=== PATIENT | female | born 1955 | race Caucasian/White ===

== ENCOUNTER 2024-12-19 11:19 | Emergency (ER) | payer OTHER, SELFPAY ==
--- NOTE | ~2024-12-19 | MR_ITS ---
CLINICAL HISTORY: New onset seizure disorder MR BRAIN WITH AND WITHOUT GADOLINIUM Comparison: None provided Findings: No restricted diffusion. No intra-axial mass or hemorrhage. Numerous cortical and subcortical tiny foci of T2 FLAIR signal alteration. Multiple discrete and coalescent foci of T2 FLAIR signal alteration in the periventricular white matter. No mesial temporal signal alteration. No midline shift. No hydrocephalus. Vascular flow voids are intact. Visualized orbits: No acute abnormalities. No sinus fluid. Nonspecific bilateral ethmoid sinus disease. Rightward nasal septal deviation with a large left middle danni bullosa. Signal alteration in the right mastoid air cells suggesting nonspecific partial opacification. No focal bone lesion. IMPRESSION: 1. No acute infarct, hemorrhage or intracranial mass lesion. 2. Mild burden of periventricular and subcortical white matter signal alteration. This is a nonspecific finding that can be seen in the setting of age advanced microangiopathy, remote trauma, prior infectious/inflammatory process (such as demyelination) or can be seen with increased frequency in patients with a history of migraine headaches. This document has been electronically signed by: Ricarda Rodriguez DO on 12/19/2024 18:15:38
--- NOTE | 2024-12-19 11:32 | ECG_ITS ---
Test Reason : NURO CHANGES Blood Pressure : */* mmHG Vent. Rate : 64 BPM Atrial Rate : 64 BPM P-R Int : 198 ms QRS Dur : 88 ms QT Int : 412 ms P-R-T Axes : 80 70 60 degrees QTcB Int : 425 ms Normal sinus rhythm Normal ECG No previous ECGs available Referred By: Florinda Sarmiento Electronically Signed By: RASHI HE
[2024-12-19 11:35] LABS: MANUAL DIFF FLAG NO
[2024-12-19 11:48] VITALS: BP 128/75; PULSE 70; RESP 16; TEMP 37; O2SAT 99; BMI 27.5
[2024-12-19 11:53] LABS: Hematocrit 36.2 % (37.0-47.0); Hemoglobin 12.7 g/dl (12.0-16.0); Imm Gran Abs Auto 0.01 X10*3/uL (0.00-0.03); Imm Gran Pct Auto 0.2 % (0.0-0.4); Lymphocytes Absolute Auto 1.3 X10*3/uL (1.2-4.9); Mean Corpuscular HGB Conc 35.1 g/dl (31.0-35.0); Mean Corpuscular Hemoglobin 32.0 pg (27.0-33.0); Mean Corpuscular Volume 91.2 fL (80.0-98.0); NRBC Abs Auto 0.000 X10*3/uL (0.0-0.012); NRBC Pct Auto 0.0 /100WBC (0.0-0.2); Platelet Count 275 X10*3/uL (160-400); Red Blood Count 3.97 X10*6/uL (4.20-5.50); White Blood Count 4.7 X10*3/uL (4.8-10.8)
--- NOTE | 2024-12-19 11:57 | ED_ITS ---
HPI - Neuro Symptoms/Deficit General Chief Complaint: Neuro Symptoms/Deficit Stated Complaint: Seizure Time Seen by Provider: 12/19/24 11:34 History of Present Illness ED Provider: Dr. Sarmiento HPI Narrative: 68 y/o F patient; PMH trigeminal neuralgia, migraine with aura; presents from out-patient neurologist office with report of witnessed first time seizure episode. Patient was reportedly with her who was receiving unfortunate news. She was then noted to become pale, sweaty, had black spots in her vision, and started to tremble. Report she was drooling at this time. Episode was witnessed by a neurologist who reported concern for partial focal seizure activity. The patient denies any prior episodes of seizure. She is now reporting a left sided headache with mild nausea. She otherwise denies: fever or chills, SOB, cough/congestion, chest pain, abdominal pain, vomiting. Related Data Allergies Allergy/AdvReac Type Severity Reaction Status Date / Time amoxicillin Allergy Rash Verified 12/19/24 11:53 shellfish derived (shellfish) Allergy Hives Verified 12/19/24 11:53 acetaminophen (From Vicodin) AdvReac Fainting Verified 12/19/24 11:53 carbamazepine AdvReac Stomach Verified 12/19/24 11:53 Upset hydrocodone (From Vicodin) AdvReac Fainting Verified 12/19/24 11:53 Review of Systems 2 Review of Systems: Yes all other systems are reviewed and are negative Neurologic: Denies Abnormal speech present and Denies Sensory deficit (Neuro) PMFSH Past Medical History Attestation statement: The following information was validated with the patient. Source: unable to obtain Social History Social History Advance Directives: No Advance Directives Information Provided: Yes Physical Exam 2 Vital Signs: Vital Signs: Last Vital Signs Temp 98.6 F 12/19/24 11:48 Pulse 72 12/19/24 18:12 Resp 12 12/19/24 18:12 BP 153/69 H 12/19/24 18:12 Pulse Ox 100 12/19/24 18:12 O2 Del Method Room Air 12/19/24 18:12 BMI result Body Mass Index 27.5 Patient is afebrile and hemodynamically stable. Const: General: cooperative and no acute distress O rientation/consciousness: patient oriented x3 HEENT: Other: No trauma to tongue Head: Yes normal to inspection and Yes atraumatic Eyes: General: appearance normal, both eyes and all related structures C onjunctivae: conjunctivae normal Pupils: Equal, round and reactive pupils present EOM: EOMs intact bilaterally Neck: Neck: Yes normal visual inspection, Yes full ROM, Yes supple and No tender Chest: Chest palpation & inspection: normal inspection of the chest and normal palpation of entire chest wall Resp: Effort & Inspection: normal respiratory effort, able to speak in complete sentences and no cough Auscultation: clear to auscultation bilaterally Cardio: Rate: regular rate Rhythm: regular rhythm Peripheral pulses: P eripheral pulses 2+ throughout GI: Inspection: Yes normal to inspection, No Abdominal wall edema and No distended Palpation (GI): Soft to palpation, not firm, nontender, no guarding and not rigid Auscultation: normal bowel sounds Back/Spine/Pelvis: Back: No back tenderness Neuro: General: patient oriented x3 and gait normal Cranial nerves: Yes Equal, round and reactive pupils present Cognition (Neuro): normal cognition Speech: No Abnormal speech present Motor exam (neuro): 5/5 motor strength present throughout Sensory Exam: No Sensory deficit (Neuro) Course Course Course Narrative: Patient is afebrile and hemodynamically stable. Given concern for first episode seizure - ordered for CT Head, EKG, and laboratory studies. EKG independently interpreted by myself as NSR 64BPM with normal intervals. No prior for comparison. Provided 1L IVF. Labs reviewed. No leukocytosis. No significant anemia. Cr 1.09. Electrolytes unremarkable. Troponin undetectable. Ethanol negative. Prior to CT scan patient seen by Dr. Ragsdale. Requested EEG and MRI W and WO Contrast, cancel CT scan. Medications Administered Discontinued Medications Generic Name Dose Route Start Last Admin Trade Name Freq PRN Reason Stop Dose Admin Gadobutrol 7.5 ml 12/19/24 17:30 12/19/24 17:30 Gadobutrol 7.5 Ml Vial IVPUSH 12/19/24 17:31 7.5 ml ONCE ONE Administration Sodium Chloride 1,000 mls @ 999 mls/hr 12/19/24 11:45 12/19/24 12:35 Ns IV 12/19/24 12:45 Infused .Q1H1M FAN Infusion Medical Decision Making Medical Decision Making MDM Narrative: Patient's EEG is negative, MRI is negative. I give patient her MRI report. Patient will plan to follow up with neurologist Dr. Ragsdale. patient appears to be well and stable at this time. Lab Data 12/19/24 11:30 12/19/24 11:30 Labs: Lab Results 12/19/24 Range/Units 11:30 WBC 4.7 L (4.8-10.8) X10*3/uL RBC 3.97 L (4.20-5.50) X10*6/uL Hgb 12.7 (12.0-16.0) g/dl Hct 36.2 L (37.0-47.0) % MCV 91.2 (80.0-98.0) fL MCH 32.0 (27.0-33.0) pg MCHC 35.1 H (31.0-35.0) g/dl RDW 12.1 (11.0-16.0) % Plt Count 275 (160-400) X10*3/uL MPV 10.1 (9.4-12.3) fL Immature Gran % (Auto) 0.2 (0.0-0.4) % Neut % (Auto) 58.0 (45-73) % Lymph % (Auto) 26.9 (20-40) % Hancock % (Auto) 12.6 H (2-11) % Eos % (Auto) 1.7 (0-4) % Baso % (Auto) 0.6 (0-2) % Lymph # (Auto) 1.3 (1.2-4.9) X10*3/uL Hancock # (Auto) 0.6 (0.1-1.2) X10*3/uL Eos # (Auto) 0.1 (0.0-0.4) X10*3/uL Baso # (Auto) 0.0 (0.0-0.2) X10*3/uL Abs Immat Gran (auto) 0.01 (0.00-0.03) X10*3/uL Absolute Neuts (auto) 2.7 (2.0-8.3) x10*3/uL Absolute Nucleated RBC 0.000 (0.0-0.012) X10*3/uL Nucleated RBC % (auto) 0.0 (0.0-0.2) /100WBC Hold Blue Top SEE NOTE Sodium 132 L (135-145) mmol/L Potassium 4.2 (3.3-5.1) mmol/L Chloride 101 (96-108) mmol/L Carbon Dioxide 24 (22-29) mmol/L Anion Gap 11 L (12-20) BUN 13 (9-16) mg/dL Creatinine 1.09 (0.5-1.4) mg/dL Estim Creat Clear Calc 53.2 Estimated GFR 50 Random Glucose 123 H (60-115) mg/dL Calcium 9.2 (8.4-10.2) mg/dL Magnesium 2.1 (1.6-2.6) mg/dL Total Bilirubin 0.3 (0.0-1.0) mg/dL AST 24 (5-31) U/L ALT 28 (0-31) U/L Alkaline Phosphatase 54 (39-117) U/L Troponin I High Sens < 2.7 (<3.5-17.0) ng/L Total Protein 7.7 (6.5-8.0) g/dL Albumin 4.6 (3.5-5.0) g/dL Lipase 32 (8-78) U/L Ethyl Alcohol < 10 mg/dL Discharge Plan Discharge Clinical Impression: Seizure Patient Disposition: Home, Self-Care Instructions: New-Onset Seizure in Adults (ED) Referrals: Purvi Ragsdale MD [Physician, Neurology] Print Language: French
[2024-12-19 12:03] LABS: Alanine Aminotransferase 28 U/L (0-31); Albumin Level 4.6 g/dL (3.5-5.0); Alkaline Phosphatase 54 U/L (39-117); Anion Gap 11 (12-20); Aspartate Amino Transferase 24 U/L (5-31); Blood Urea Nitrogen 13 mg/dL (9-16); Calcium 9.2 mg/dL (8.4-10.2); Carbon Dioxide 24 mmol/L (22-29); Chloride 101 mmol/L (96-108); Creatinine Clr Calc Pharmacy 53.2; Estimated Glomerular Filt Rate 50; Lipase 32 U/L (8-78); Magnesium 2.1 mg/dL (1.6-2.6); Potassium 4.2 mmol/L (3.3-5.1); Sodium 132 mmol/L (135-145); Total Protein 7.7 g/dL (6.5-8.0); Troponin-I High Sensitivity < 2.7 ng/L (<3.5-17.0)
--- NOTE | 2024-12-19 12:07 | PC.NURSE ---
System was down at 11:35AM. Normal saline infusing as ordered, initiated at 11:35AM, back timed in EMAR. Patient & in room. Awaiting ED provider evaluation. Patient is alert/oriented at this time. 20g IV access to right AC placed by Alia Garcia RN.
--- NOTE | 2024-12-19 12:13 | EEG_ITS ---
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
--- NOTE | 2024-12-19 12:20 | PC.NURSE ---
Dr. Ragsdale (neurology) to bedside. Dr. Ragsdale also witnessed the seizure that occurred in office. Plan for EEG & MRI. Patient aware & agreeable to plan. Care ongoing by this RN.
--- NOTE | 2024-12-19 13:26 | P.CNNE_ITS ---
History of Present Illness Data of Consult Service Date: 12/19/24 Primary Care Provider: Geraldine Packer MD [facility] Reason for consult: Seizure 68 years old woman who came to my office today for consultation about her who was with her. While we were discussing his situation, she suddenly became unresponsive and had an episode. Later she reported that it started with a feeling of dizziness, nausea, and then something happening to her vision and she seeing stars and then she did not know what happened. I witnessed the whole event and noticed that files dropped from her hands she became lethargic, was staring in space, was unresponsive, and drooling. This episode lasted for 30-40 seconds and then she said that she was okay but she was still spacey and confused for many minutes. She remained seated during this time. Later, upon questioning, she stated that she had an episode 5 years ago which was confirmed by her . said that he heard a noise in the house and when he approached her, her whole body was shaking in her head head hit the ground. Emphasis was on concussions and she had a brain scan or a CAT scan done. After that she also started having left-sided facial numbness and sometime sharp pain and was diagnosed with trigeminal neuralgia but never had an MRI of brain. She reported having febrile seizure in childhood and taking phenobarbital that was stopped after couple of years of use. She was recently diagnosed with a breast lesion that was biopsied either yesterday or day before. Review of Systems 2 Review of Systems: As per [facility] Social History Social History Advance Directives: No Advance Directives Information Provided: Yes Meds Allergies Allergy/AdvReac Type Severity Reaction Status Date / Time amoxicillin Allergy Rash Verified 12/19/24 11:53 shellfish derived (shellfish) Allergy Hives Verified 12/19/24 11:53 acetaminophen (From Vicodin) AdvReac Fainting Verified 12/19/24 11:53 carbamazepine AdvReac Stomach Verified 12/19/24 11:53 Upset hydrocodone (From Vicodin) AdvReac Fainting Verified 12/19/24 11:53 Physical Exam 2 Vital Signs: Vital Signs: Last Vital Signs Temp 98.6 F 12/19/24 11:48 Pulse 70 12/19/24 11:48 Resp 16 12/19/24 11:48 BP 128/75 12/19/24 11:48 Pulse Ox 99 12/19/24 11:48 O2 Del Method Room Air 12/19/24 11:48 BMI result Body Mass Index 27.5 Neuro: Other: Mental Status: Alert and oriented to person, place, and time. Normal attention. Normal spontaneous speech, fluency, and comprehension. No obvious issues with mood and memory. Affect is appropriate. Cranial Nerves: CN II: Visual vizcarra full to confrontation, visual acuity intact. CN III, IV, : Pupils equal, round, reactive to light and accommodation. Extraocular movements are normal. CN V: Facial sensation is normal. CN VII: Facial movements symmetrical. CN VIII: Hearing intact to bedside conversation is normal. CN IX, X: Palate elevates symmetrically. CN XI: Shoulder shrug and head turn symmetrical. CN XII: Tongue midline without atrophy or fasciculations. Motor: Bulk and tone normal in all extremities. No significant muscle weakness in arms and legs. No drift. Reflexes: Deep tendon reflexes 2+ and symmetric. Plantar response down-going bilaterally. Coordination: [id number]-[id number] and gfko-[id number] testing normal. No dysmetria. Gait and Station: No obvious gait abnormality. No ataxia or instability. Extrapyramidal: Full facial expressions and blinking. No rigidity. Movements are appropriate with no tremor or abnormality. Speech: Normal; no dysarthria or tremor. Results Labs 12/19/24 11:30 12/19/24 11:30 Labs: Short CBC 12/19/24 Range/Units 11:30 WBC 4.7 L (4.8-10.8) X10*3/uL Hgb 12.7 (12.0-16.0) g/dl Hct 36.2 L (37.0-47.0) % Plt Count 275 (160-400) X10*3/uL BMP 12/19/24 11:30 Sodium 132 L Potassium 4.2 Chloride 101 Carbon Dioxide 24 BUN 13 Creatinine 1.09 Calcium 9.2 Liver Function 12/19/24 Range/Units 11:30 Total Bilirubin 0.3 (0.0-1.0) mg/dL AST 24 (5-31) U/L ALT 28 (0-31) U/L Alkaline Phosphatase 54 (39-117) U/L Albumin 4.6 (3.5-5.0) g/dL Assessment and Plan (1) Complex partial seizure: Status: Acute 68 years old woman with childhood history of febrile seizures, 1 generalized convulsion 5 years ago, diagnosis of left-sided trigeminal neuralgia, recent diagnosis of breast lesion that was biopsied recently, was sitting in my office when she had set of symptoms suggestive of complex partial seizure. Her examination later was nonfocal. My recommendation is to obtain MRI of brain with and without contrast in an EEG. She was educated about the clinical diagnosis. She should take appropriate precautions to avoid any accidents including following [facility] driving restrictions are not drive at this time. I would make dizzy and about medications after looking at her EEG and MRI. Procedures Date of Service Date of Service: 12/19/24
[2024-12-19 15:38] VITALS: BP 161/71; PULSE 79; RESP 18; O2SAT 99
[2024-12-19 18:12] VITALS: BP 153/69; PULSE 72; RESP 12; O2SAT 100
--- NOTE | 2024-12-19 18:36 | PC.NURSE ---
Patient returned from MRI. Drinking amanda jamaal with ice. at bedside. Denies complaints at this time. Awaiting MRI results. EEG was done by neurology department earlier today.
[2024-12-19 19:12] VITALS: BP 153/69; PULSE 72; RESP 12; TEMP 36.8; O2SAT 100
== END 2024-12-19 19:12 | disposition home or self-care (01) ==
PROVIDERS: Emergency Provider Emergency Medicine; PCP Student in an Organized Health Care Education/Training Program
DX: R56.9 Unspecified convulsions (principal); Z86.69 Personal history of other diseases of the nervous system and sense organs; Z79.899 Other long term (current) drug therapy
CPT/HCPCS: 36415; 70553; 80053; 80307; 83690; 83735; 84484; 85025; 93005; 95816; 96360; 99284; 99285; A9585

== ENCOUNTER → 2024-12-19 11:32 | Outpatient (BNV) | payer OTHER, SELFPAY | PROVIDERS: Emergency Provider Emergency Medicine; PCP Student in an Organized Health Care Education/Training Program; Visit Provider Internal Medicine | DX: R29.818 Other symptoms and signs involving the nervous system (principal) | CPT/HCPCS: 93010 ==

== ENCOUNTER → 2024-12-19 12:13 | Outpatient (BNV) | payer OTHER, SELFPAY | PROVIDERS: Emergency Provider Emergency Medicine; PCP Student in an Organized Health Care Education/Training Program; Visit Provider Radiology Diagnostic Radiology | DX: R56.9 Unspecified convulsions (principal) | CPT/HCPCS: 70553 ==

== ENCOUNTER → 2024-12-19 12:18 | Outpatient (BNV) | payer OTHER, SELFPAY | PROVIDERS: Emergency Provider Emergency Medicine; PCP Student in an Organized Health Care Education/Training Program; Visit Provider Psychiatry & Neurology Neurology | DX: G40.209 Localization-related (focal) (partial) symptomatic epilepsy and epileptic syndromes with complex partial seizures, not intractable, without status epilepticus (principal) | CPT/HCPCS: 95816; 99285 ==

== ENCOUNTER 2025-01-20 12:46 | Outpatient (AMB) | payer OTHER, SELFPAY ==
--- NOTE | 2025-01-20 12:57 | MHC.OFFVIS ---
Intake Visit Reasons: Sz in office, follow up after ER. MRI done in ED Allergies amoxicillin Allergy (Verified 12/19/24 11:53) Rash shellfish derived (shellfish) Allergy (Verified 12/19/24 11:53) Hives acetaminophen (From Vicodin) Adverse Reaction (Verified 12/19/24 11:53) Fainting carbamazepine Adverse Reaction (Verified 12/19/24 11:53) Stomach Upset hydrocodone (From Vicodin) Adverse Reaction (Verified 12/19/24 11:53) Fainting HPI Comments Details: 69 years old woman with complex partial seizure disorder. (Initial detail: She came to my office today for consultation about her who was with her. While we were discussing his situation, she suddenly became unresponsive and had an episode. Later she reported that it started with a feeling of dizziness, nausea, and then something happening to her vision and she seeing stars and then she did not know what happened. I witnessed the whole event and noticed that files dropped from her hands she became lethargic, was staring in space, was unresponsive, and drooling. This episode lasted for 30-40 seconds and then she said that she was okay but she was still spacey and confused for many minutes. She remained seated during this time. Later, upon questioning, she stated that she had an episode 5 years ago which was confirmed by her . said that he heard a noise in the house and when he approached her, her whole body was shaking in her head head hit the ground. Emphasis was on concussions and she had a brain scan or a CAT scan done. After that she also started having left-sided facial numbness and sometime sharp pain and was diagnosed with trigeminal neuralgia but never had an MRI of brain. She reported having febrile seizure in childhood and taking phenobarbital that was stopped after couple of years of use.) Her breast biopsy was negative and she was happy. She was trying blood pressure medicines and had cough with lisinopril and now was trying losartan. No further seizure-like episode have occurred. [facility] Medical History (Updated 01/20/25 @ 13:10 by Purvi Ragsdale MD) Complex partial seizure Review of Systems Const Details: No further seizure-like episodes. Physical Exam Neuro Other: Mental Status: Alert and oriented to person, place, and time. Normal attention. Normal spontaneous speech, fluency, and comprehension. No obvious issues with mood and memory. Affect is appropriate. Cranial Nerves: CN II: Visual vizcarra full to confrontation, visual acuity intact. CN III, IV, : Pupils equal, round, reactive to light and accommodation. Extraocular movements are normal. CN V: Facial sensation is normal. CN VII: Facial movements symmetrical. CN VIII: Hearing intact to bedside conversation is normal. CN IX, X: Palate elevates symmetrically. CN XI: Shoulder shrug and head turn symmetrical. CN XII: Tongue midline without atrophy or fasciculations. Extrapyramidal: Full facial expressions and blinking. No rigidity. Movements are appropriate with no tremor or abnormality. Speech: Normal; no dysarthria or tremor. Assessment & Plan Assessment & Plan (1) Complex partial seizure: Comment: EEG at [facility] in Nov 2024: WNL Code(s): G40.209 - Localization-related (focal) (partial) symptomatic epilepsy and epileptic syndromes with complex partial seizures, not intractable, without status epilepticus Category: Medical (2) Cerebral microvascular disease: Comment: MRI brain WO at [facility] [place] in Nov 2024: Mild to mod MVD Code(s): I67.89 - Other cerebrovascular disease Category: Medical (3) Trigeminal neuralgia of left side of face: Code(s): G50.0 - Trigeminal neuralgia Category: Medical Plan Impression: 1. Complex partial seizure disorder 2. 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 Left trigeminal neuralgia in remission with amitriptyline Recommendations: Amitriptyline 10 mg 2 at night can continue for management of trigeminal neuralgia Lamotrigine 25 mg 1 a day for a week and then 1 twice a day. She was educated about antiepileptics and there effects Limit alcohol use to not more than 1 drink a day and maybe not every day. Follow [facility] driving regulations about seizure disorder and also take additional appropriate precautions such as not swimming alone or sitting in a soaking tub alone Medications: New amitriptyline 20 mg (2 x 10 mg) PO BEDTIME 180 tabs 0RF lamotrigine Take one a day for a week and then twice a day 25 mg PO BID 180 tabs 0RF Coding Level of Care Code Est Pt Level 5 (39566) Diagnoses Complex partial seizure G40.209 Cerebral microvascular disease I67.89 Trigeminal neuralgia of left side of face G50.0
== END 2025-01-20 13:29 | disposition home or self-care (01) ==
LOC: HO.HSM 12:47
PROVIDERS: PCP Student in an Organized Health Care Education/Training Program; Visit Provider Psychiatry & Neurology Neurology
DX: G40.209 Localization-related (focal) (partial) symptomatic epilepsy and epileptic syndromes with complex partial seizures, not intractable, without status epilepticus (principal); I67.89 Other cerebrovascular disease; G50.0 Trigeminal neuralgia
CPT/HCPCS: 99214